=== PATIENT | male | born 1970 | race African-American/Black ===

== ENCOUNTER 2016-05-07 23:48 | Emergency (ER) | payer OTHER ==
[~2016-05-07] VITALS: Ht 182.9 cm; Wt 178.2 kg
[~2016-05-07 23:48] MED LIST: ADVIL,NUPRIN,M200 MG PO; AMOX TR-K CLV1 EAC4 PO; AVINza PO; Aldactone PO; Apresoline PO; BACTRIM,SEPT1 TABLET PO; Benicar PO; CARDIZEM60 MG PO; CARVEDILOL25 MG PO; CEPHALEXIN500 MG PO; CIPRO500 MG PO; CLEOCIN300 MG PO; CLINDAMYCIN HC300 MG PO; CLONIDINE HCL0.2 MG PO; COREG CR40 MG PO; COREG25 M1 PO; Catapres-TTS 2 TD; Cleocin PO; Coreg PO; DAILY VITE1 EAC1 PO; DILTIAZEM 24HR240 MG PO; DILTIAZEM ER60 MG PO; DIOVAN320 MG PO; DOXYCYCLINE HY100 M3 PO; Ecotrin PO; FERROUS SULFAT325 MG PO; FUROSEMIDE20 MG PO; FUROSEMIDE40 MG PO; HYDRALAZINE HCL50 MG PO; HYDROCHLOROTHIA50 MG PO; HYDROCODON-ACE1 EAC7 PO; HYDRODIURIL,O12.5 M2 PO; HYDROMORPHONE HC4 MG PO; HYGROTON25 MG PO; Hydrodiuril,Oretic,E PO; IBUPROFEN200 M1 PO; IBUPROFEN800 MG PO; IMDUR60 MG PO; INDOCIN25 MG PO; INVANZ1 GM IV; Imdur PO; KEFLEX500 MG PO; LEVAQUIN500 MG PO; LEVAQUIN750 MG PO; LEVOFLOXACIN750 MG PO; LOSARTAN POTAS100 MG PO; LYRICA150 MG PO; LYRICA50 MG PO; Levaquin PO; MAXIPIME2 GM IV; MICONAZOLE NITR30 GM TP; MITRAZOL 2% CRE45 GM TP; MOTRIN IB200 MG PO; MOTRIN800 MG PO; NEURONTIN100 MG PO; NICOTINE PATCH1 EAC2 TD; NORCO 5/3251 TABLET PO; NORMODYNE,TRAN300 MG PO; NORVASC10 MG PO; Norvasc PO; OPANA ER20 MG PO; OXYCODONE HCL15 MG PO; OXYCODONE-APAP1 EACH; OXYMORPHONE HCL40 MG PO; PERCOCET 10/1 TABLET PO; PERCOCET 5/31 TABLET PO; POLYETHYLENE GL17 GM PO; PRINIVIL20 MG PO; Percocet 10/325,Endo PO; Proventil,Ventolin H IH; SENNA LAX8.6 MG PO; SENNA8.6 MG PO; SPIRONOLACTONE25 MG PO; TOPROL PO; TOPROL XL50 MG PO; TORADOL10 MG PO; TRILEPTAL150 MG PO; ULTRACET1 TABLET PO; ULTRAM50 MG PO; Vicodin,Norco 5/325 PO; XARELTO15 MG PO; ZOFRAN ODT4 MG PO; Zestril,Prinivil PO; oxyCODONE PO
[2016-05-08 03:47] LABS: HEMATOCRIT 38.9 % (38.0-50.0); MCH 28.8 PG (29.0-34.0); MCHC 33.2 G/DL (30.0-36.0); MCV 86.8 FL (86-99); MEAN PLAT.VOLUME 9.8 uM^3 (9.0-12.4); PLATELET COUNT 216 K/uL (156-360); RBC DIS.WIDTH-CV 14.3 % (11.8-14.6); RBC DIS.WIDTH-SD 44.8 % (39-53); RED BLOOD COUNT 4.48 M/uL (4.00-5.50); WHITE BLOOD COUNT 8.4 K/uL (4.1-10.2)
[2016-05-08 03:55] LABS: CHLORIDE 105 mEq/L (99-109); POTASSIUM 3.6 mEq/L (3.7-5.4); SODIUM 141 mEq/L (136-147)
[2016-05-08 03:58] LABS: GLUCOSE 99 mg/dL (70-99)
[2016-05-08 03:59] LABS: ANION GAP 7 MEQ/L (2-14)
[2016-05-08 04:00] LABS: TOTAL BILIRUBIN 0.2 mg/dL (0.0-1.0)
[2016-05-08] MEDS ORDERED: NORCO 5/3251 TABLET PO (04:00)
[2016-05-08 04:01] LABS: ALKALINE PHOSPHATASE 129 IU/L (3-129); GFR ESTIMATE (CALCULATED) > 59 mL/min/
[2016-05-08 04:02] LABS: UREA NITROGEN (BUN) 14 mg/dL (9-23)
[2016-05-08 04:05] LABS: LIPASE 41 U/L (1.0-51.0)
[2016-05-08 04:18] VITALS: BP 135/99
== END 2016-05-08 04:26 | disposition home or self-care (01) ==
LOC: EME 23:48
PROVIDERS: Emergency Medicine
DX: S40.012A Contusion of left shoulder, initial encounter (principal); S70.02XA Contusion of left hip, initial encounter; M16.9 Osteoarthritis of hip, unspecified; W10.9XXA Fall (on) (from) unspecified stairs and steps, initial encounter; Y93.01 Activity, walking, marching and hiking; Z87.891 Personal history of nicotine dependence; I10 Essential (primary) hypertension; I48.91 Unspecified atrial fibrillation; J45.909 Unspecified asthma, uncomplicated; Z87.442 Personal history of urinary calculi; Z86.718 Personal history of other venous thrombosis and embolism; Z88.1 Allergy status to other antibiotic agents
CPT/HCPCS: 72192; 73030; 73502; 80053; 83690; 85027; 99281; 99284; J1885

== ENCOUNTER 2016-05-20 23:19 | Inpatient (IN) | payer OTHER ==
[~2016-05-20] VITALS: Ht 182.9 cm; Wt 189.3 kg
[2016-05-21 02:07] LABS: BASOPHIL COUNT 0.1 K/uL (0-0.1); EOSINOPHIL (%) 6.2 % (0-5); EOSINOPHIL COUNT 0.6 K/uL (0-0.3); HEMATOCRIT 37.6 % (38.0-50.0); IMMATURE GRANULOCYTE (%) 0.1 % (0.0-0.7); IMMATURE GRANULOCYTE COUNT 0.1 K/uL; LYMPHOCYTE COUNT 3.5 K/uL (1.0-2.8); MCH 28.6 PG (29.0-34.0); MCHC 32.4 G/DL (30.0-36.0); MCV 88.3 FL (86-99); MEAN PLAT.VOLUME 10.6 uM^3 (9.0-12.4); MONOCYTE (%) 9.6 % (3-12); MONOCYTE COUNT 0.9 K/uL (0-0.8); NEUTROPHIL (%) 45.9 % (45-76); NEUTROPHIL COUNT 4.3 K/uL (1.8-6.4); PLATELET COUNT 206 K/uL (156-360); RBC DIS.WIDTH-CV 14.6 % (11.8-14.6); RBC DIS.WIDTH-SD 46.2 % (39-53); RED BLOOD COUNT 4.26 M/uL (4.00-5.50); WHITE BLOOD COUNT 9.3 K/uL (4.1-10.2)
[2016-05-21 02:15] LABS: CHLORIDE 105 mEq/L (99-109); POTASSIUM 3.7 mEq/L (3.7-5.4); SODIUM 143 mEq/L (136-147)
[2016-05-21 02:16] LABS: GLUCOSE 88 mg/dL (70-99)
[2016-05-21 02:18] LABS: ANION GAP 7 MEQ/L (2-14)
[2016-05-21 02:20] LABS: GFR ESTIMATE (CALCULATED) > 59 mL/min/
[2016-05-21 02:21] LABS: UREA NITROGEN (BUN) 14 mg/dL (9-23)
[2016-05-21] MEDS ORDERED: MELOXICAM15 MG PO (08:46)
[2016-05-21] MEDS ORDERED: CLONIDINE HCL0.1 MG PO (08:46)
[2016-05-21 10:40] LABS: INTER. NORMALIZED RATIO 1.1; PROTHROMBIN TIME 10.8 (9.2-11.2); PTT 25.4 (25-32)
[2016-05-21 15:30] VITALS: BP 138/81
[2016-05-21 20:30] VITALS: BP 181/84
[2016-05-21 23:55] VITALS: BP 164/88
[2016-05-22 04:26] VITALS: BP 134/68
[2016-05-22 08:00] VITALS: BP 125/74
[2016-05-22 12:00] VITALS: BP 115/62
[2016-05-22 16:05] VITALS: BP 154/80
[2016-05-22 21:16] VITALS: BP 158/93
[2016-05-22 23:55] VITALS: BP 162/95
[2016-05-23 01:33] LABS: INTER. NORMALIZED RATIO 1.1; PROTHROMBIN TIME 10.7 (9.2-11.2)
[2016-05-23 01:48] LABS: PTT 30.2 (25-32)
[2016-05-23 02:41] LABS: INTER. NORMALIZED RATIO 1.1; PROTHROMBIN TIME 10.7 (9.2-11.2); PTT 31.8 (25-32)
[2016-05-23 04:46] VITALS: BP 146/85
[2016-05-23 08:09] VITALS: BP 174/106
[2016-05-23 09:59] LABS: INTER. NORMALIZED RATIO 1.1; PROTHROMBIN TIME 10.7 (9.2-11.2); PTT 43.1 (25-32)
[2016-05-23 12:21] VITALS: BP 144/72
[2016-05-23 16:46] VITALS: BP 122/69
[2016-05-23 20:07] VITALS: BP 183/96
[2016-05-23 23:53] VITALS: BP 172/96
[2016-05-24 04:17] LABS: PTT 47.1 (25-32)
[2016-05-24 04:32] LABS: HEMATOCRIT 35.6 % (38.0-50.0); MCH 28.4 PG (29.0-34.0); MCHC 32.3 G/DL (30.0-36.0); MCV 87.9 FL (86-99); PLATELET COUNT 200 K/uL (156-360); RBC DIS.WIDTH-CV 14.4 % (11.8-14.6); RBC DIS.WIDTH-SD 45.3 % (39-53); RED BLOOD COUNT 4.05 M/uL (4.00-5.50); WHITE BLOOD COUNT 7.7 K/uL (4.1-10.2)
[2016-05-24 05:07] LABS: INTER. NORMALIZED RATIO 1.1; PROTHROMBIN TIME 11.1 (9.2-11.2)
[2016-05-24 07:00] VITALS: BP 167/69
[2016-05-24 10:35] LABS: TROP-I INTERPRETATION NEGATIVE; TROPONIN-I < 0.01 ng/mL (0.0-0.30)
[2016-05-24 11:01] VITALS: BP 159/85
[2016-05-24 15:59] VITALS: BP 158/96
[2016-05-24 17:12] LABS: TROP-I INTERPRETATION NEGATIVE; TROPONIN-I 0.01 ng/mL (0.0-0.30)
[2016-05-24 19:30] VITALS: BP 131/68
[2016-05-24 23:45] VITALS: BP 107/56
[2016-05-25 01:43] LABS: TROP-I INTERPRETATION NEGATIVE; TROPONIN-I 0.02 ng/mL (0.0-0.30)
[2016-05-25 03:36] VITALS: BP 113/63
[2016-05-25 06:34] LABS: INTER. NORMALIZED RATIO 1.3; PROTHROMBIN TIME 13.2 (9.2-11.2)
[2016-05-25 07:47] VITALS: BP 140/88
[2016-05-25 10:48] VITALS: BP 120/78
[2016-05-25 15:10] VITALS: BP 171/81
[2016-05-25 19:38] VITALS: BP 126/69
[2016-05-25 23:30] VITALS: BP 103/57
[2016-05-26 03:20] VITALS: BP 110/78
[2016-05-26 06:44] LABS: INTER. NORMALIZED RATIO 1.5; PROTHROMBIN TIME 15.9 (9.2-11.2); PTT 49.1 (25-32)
[2016-05-26 07:30] VITALS: BP 168/91
[2016-05-26 11:18] VITALS: BP 133/78
[2016-05-26 15:41] VITALS: BP 160/98
[2016-05-26 19:56] VITALS: BP 134/66
[2016-05-26 23:25] VITALS: BP 137/75
[2016-05-27 03:50] LABS: INTER. NORMALIZED RATIO 1.7; PROTHROMBIN TIME 17.8 (9.2-11.2); PTT 70.3 (25-32)
[2016-05-27 07:28] VITALS: BP 149/86
[2016-05-27 11:17] VITALS: BP 135/68
[2016-05-27 15:45] VITALS: BP 156/93
[2016-05-27 19:56] VITALS: BP 134/81
[2016-05-27 23:46] VITALS: BP 117/59
[2016-05-28 04:25] VITALS: BP 154/89
[2016-05-28 08:25] LABS: INTER. NORMALIZED RATIO 1.9; PROTHROMBIN TIME 19.3 (9.2-11.2); PTT 67.5 (25-32)
[2016-05-28] MEDS ORDERED: HYDROCHLOROTHIA25 MG PO (09:05)
[2016-05-28] MEDS ORDERED: COUMADIN1 MG PO (09:06)
[2016-05-28 09:18] VITALS: BP 131/75
[2016-05-28] MEDS ORDERED: COUMADIN5 MG PO (09:42)
== END 2016-05-28 13:43 | disposition home or self-care (01) | DRG 253 ==
LOC: EME 23:19 → 4SOUTH 05-21 08:57 → EDOF 05-21 08:57 → 4SOUTH 05-21 08:57
PROVIDERS: Emergency Medicine; Internal Medicine
PROC: 06H03DZ Insertion of Intraluminal Device into Inferior Vena Cava, Percutaneous Approach (ICD-10-PCS; principal; 2016-05-24)
DX: I82.4Z9 Acute embolism and thrombosis of unspecified deep veins of unspecified distal lower extremity (principal); L03.115 Cellulitis of right lower limb; Z68.43 Body mass index [BMI] 50.0-59.9, adult; E27.40 Unspecified adrenocortical insufficiency; E66.01 Morbid (severe) obesity due to excess calories; I87.2 Venous insufficiency (chronic) (peripheral); I48.0 Paroxysmal atrial fibrillation; G47.33 Obstructive sleep apnea (adult) (pediatric); G89.4 Chronic pain syndrome; I82.511 Chronic embolism and thrombosis of right femoral vein; D64.9 Anemia, unspecified; I10 Essential (primary) hypertension; K21.9 Gastro-esophageal reflux disease without esophagitis; F17.210 Nicotine dependence, cigarettes, uncomplicated; I89.0 Lymphedema, not elsewhere classified; Z90.49 Acquired absence of other specified parts of digestive tract
CPT/HCPCS: 70100; 80048; 81003; 83605; 84484; 85025; 85027; 85610; 85730; 87040; 93005; 93971; 94660; 99281; 99284; C1769; C1894; J1170; J1644; J2250; J2270; J3010

== ENCOUNTER 2016-08-18 16:56 | Emergency (ER) | payer OTHER ==
[~2016-08-18] VITALS: Ht 185.4 cm; Wt 176.0 kg
[~2016-08-18 16:56] MED LIST changes: +CLONIDINE HCL0.1 MG PO; +COUMADIN1 MG PO; +COUMADIN5 MG PO; +HYDROCHLOROTHIA25 MG PO; +MELOXICAM15 MG PO
[2016-08-18 17:56] LABS: POINT-OF-CARE METER ID UU13113800
[2016-08-18 18:04] LABS: HEMATOCRIT 40.1 % (38.0-50.0); MCH 28.5 PG (29.0-34.0); MCHC 32.2 G/DL (30.0-36.0); MCV 88.7 FL (86-99); MEAN PLAT.VOLUME 10.5 uM^3 (9.0-12.4); PLATELET COUNT 183 K/uL (156-360); RBC DIS.WIDTH-CV 14.8 % (11.8-14.6); RBC DIS.WIDTH-SD 48.7 % (39-53); RED BLOOD COUNT 4.52 M/uL (4.00-5.50); WHITE BLOOD COUNT 7.8 K/uL (4.1-10.2)
[2016-08-18 18:15] LABS: CHLORIDE 106 mEq/L (99-109); POTASSIUM 3.1 mEq/L (3.7-5.4); SODIUM 142 mEq/L (136-147)
[2016-08-18 18:16] LABS: INTER. NORMALIZED RATIO 1.1; PROTHROMBIN TIME 11.3 (9.2-11.2); PTT 26.7 (25-32)
[2016-08-18 18:17] LABS: GLUCOSE 102 mg/dL (70-99)
[2016-08-18 18:18] LABS: ANION GAP 8 MEQ/L (2-14)
[2016-08-18 18:21] LABS: GFR ESTIMATE (CALCULATED) > 59 mL/min/
[2016-08-18 18:22] LABS: UREA NITROGEN (BUN) 11 mg/dL (9-23)
[2016-08-18 18:26] LABS: TROP-I INTERPRETATION NEGATIVE; TROPONIN-I < 0.01 ng/mL (0.0-0.30)
[2016-08-18 18:53] LABS: D-DIMER ELISA 2.05 mg/L FEU (< 0.57)
[2016-08-18 19:28] LABS: ADD MIUA? NO; BILIRUBIN NEGATIVE; BLOOD NEGATIVE; COLOR YELLOW ((YELLOW)); GLUCOSE (STRIP) NEGATIVE; KETONES NEGATIVE; LEUKOCYTES NEGATIVE; NITRITE NEGATIVE; PROTEIN (STRIP) NEGATIVE; SPECIFIC GRAVITY 1.017 (1.000-1.030)
[2016-08-18 22:16] VITALS: BP 166/90
== END 2016-08-18 22:19 | disposition home or self-care (01) ==
LOC: EME 16:56
PROVIDERS: Physician Assistant
DX: E87.6 Hypokalemia (principal); R79.1 Abnormal coagulation profile; Z79.01 Long term (current) use of anticoagulants; M25.552 Pain in left hip; Z91.81 History of falling; R07.9 Chest pain, unspecified; R35.0 Frequency of micturition; Z86.718 Personal history of other venous thrombosis and embolism; I10 Essential (primary) hypertension; Z79.891 Long term (current) use of opiate analgesic; F17.200 Nicotine dependence, unspecified, uncomplicated
CPT/HCPCS: 71020; 71275; 73502; 80048; 81003; 82948; 84484; 85027; 85379; 85610; 85730; 93005; 99281; 99285; J2270

== ENCOUNTER 2016-10-29 04:06 | Observation (INO) | payer OTHER ==
[~2016-10-29] VITALS: Ht 182.9 cm; Wt 180.4 kg
[~2016-10-29 04:06] MED LIST changes: -CARDIZEM60 MG PO; -CLONIDINE HCL0.1 MG PO; -DAILY VITE1 EAC1 PO; -OPANA ER20 MG PO
[2016-10-29 04:34] LABS: HEMATOCRIT 41.4 % (38.0-50.0); MCH 28.6 PG (29.0-34.0); MCHC 33.3 G/DL (30.0-36.0); MCV 85.9 FL (86-99); MEAN PLAT.VOLUME 9.9 uM^3 (9.0-12.4); PLATELET COUNT 207 K/uL (156-360); RBC DIS.WIDTH-CV 14.6 % (11.8-14.6); RBC DIS.WIDTH-SD 45.9 % (39-53); RED BLOOD COUNT 4.82 M/uL (4.00-5.50); WHITE BLOOD COUNT 8.9 K/uL (4.1-10.2)
[2016-10-29 04:44] LABS: CHLORIDE 105 mEq/L (99-109); POTASSIUM 3.4 mEq/L (3.7-5.4); SODIUM 139 mEq/L (136-147)
[2016-10-29 04:46] LABS: GLUCOSE 100 mg/dL (70-99)
[2016-10-29 04:47] LABS: ANION GAP 11 MEQ/L (2-14)
[2016-10-29 04:50] LABS: GFR ESTIMATE (CALCULATED) > 59 mL/min/
[2016-10-29 04:51] LABS: UREA NITROGEN (BUN) 14 mg/dL (9-23)
[2016-10-29 04:56] LABS: TROP-I INTERPRETATION NEGATIVE; TROPONIN-I 0.01 ng/mL (0.0-0.30)
[2016-10-29 07:20] LABS: PROTHROMBIN TIME 11.1 SEC (10.2-12.9)
[2016-10-29 07:23] VITALS: BP 99/65
[2016-10-29 11:29] VITALS: BP 110/72
[2016-10-29 13:13] LABS: TROPONIN-I < 0.01 ng/mL (0.0-0.30)
[2016-10-29 13:19] LABS: TROP-I INTERPRETATION NEGATIVE
[2016-10-29] MEDS ORDERED: HYDRALAZINE HCL50 MG PO (14:45)
[2016-10-29] MEDS ORDERED: DAILY VITE1 EAC1 PO (14:45)
[2016-10-29] MEDS ORDERED: OXYCODONE HCL15 MG PO (14:46)
[2016-10-29] MEDS ORDERED: CARDIZEM60 MG PO (14:46)
[2016-10-29] MEDS ORDERED: OPANA ER15 MG PO (14:46)
[2016-10-29] MEDS ORDERED: COREG25 M1 PO (14:48)
[2016-10-29] MEDS ORDERED: CLONIDINE HCL0.1 MG PO (14:49)
[2016-10-29] MEDS ORDERED: HYDROCHLOROTHIA50 MG PO (14:49)
[2016-10-29] MEDS ORDERED: JANTOVEN5 MG PO (14:50)
[2016-10-29 15:41] VITALS: BP 117/81
[2016-10-29 19:09] VITALS: BP 134/63
[2016-10-29 20:46] LABS: TROP-I INTERPRETATION NEGATIVE; TROPONIN-I 0.02 ng/mL (0.0-0.30)
[2016-10-30] VITALS: BP 131/77
[2016-10-30 04:14] LABS: BASOPHIL COUNT 0.1 K/uL (0-0.1); EOSINOPHIL (%) 5.9 % (0-5); EOSINOPHIL COUNT 0.4 K/uL (0-0.3); HEMATOCRIT 37.7 % (38.0-50.0); HEMATOCRIT 38.3 % (38.0-50.0); IMMATURE GRANULOCYTE (%) 0.1 % (0.0-0.7); INSTRUMENT ABS NEUTROPHIL CT 2.2 K/uL; LYMPHOCYTE COUNT 3.4 K/uL (1.0-2.8); MCH 28.5 PG (29.0-34.0); MCH 28.6 PG (29.0-34.0); MCHC 32.4 G/DL (30.0-36.0); MCHC 32.6 G/DL (30.0-36.0); MCV 87.7 FL (86-99); MEAN PLAT.VOLUME 9.6 uM^3 (9.0-12.4); MEAN PLAT.VOLUME 9.8 uM^3 (9.0-12.4); MONOCYTE COUNT 0.7 K/uL (0-0.8); NEUTROPHIL (%) 33.1 % (45-76); NEUTROPHIL COUNT 2.2 K/uL (1.8-6.4); PLATELET COUNT 183 K/uL (156-360); PLATELET COUNT 189 K/uL (156-360); RBC DIS.WIDTH-CV 14.4 % (11.8-14.6); RBC DIS.WIDTH-CV 14.7 % (11.8-14.6); RBC DIS.WIDTH-SD 46.5 % (39-53); RBC DIS.WIDTH-SD 47.6 % (39-53); RED BLOOD COUNT 4.35 M/uL (4.00-5.50); WHITE BLOOD COUNT 6.6 K/uL (4.1-10.2); WHITE BLOOD COUNT 6.8 K/uL (4.1-10.2)
[2016-10-30 04:16] VITALS: BP 138/84
[2016-10-30 04:19] LABS: INTER. NORMALIZED RATIO 1.1; PROTHROMBIN TIME 11.9 SEC (10.2-12.9)
[2016-10-30 04:29] LABS: CHLORIDE 106 mEq/L (99-109); POTASSIUM 3.7 mEq/L (3.7-5.4); SODIUM 142 mEq/L (136-147)
[2016-10-30 04:31] LABS: GLUCOSE 90 mg/dL (70-99)
[2016-10-30 04:32] LABS: ANION GAP 6 MEQ/L (2-14)
[2016-10-30 04:33] LABS: TOTAL BILIRUBIN 0.5 mg/dL (0.0-1.0)
[2016-10-30 04:34] LABS: ALKALINE PHOSPHATASE 93 IU/L (3-129)
[2016-10-30 04:35] LABS: GFR ESTIMATE (CALCULATED) > 59 mL/min/
[2016-10-30 04:36] LABS: UREA NITROGEN (BUN) 16 mg/dL (9-23)
[2016-10-30 04:37] LABS: TROP-I INTERPRETATION NEGATIVE; TROPONIN-I < 0.01 ng/mL (0.0-0.30)
[2016-10-30 07:44] VITALS: BP 140/73
[2016-10-30 11:44] VITALS: BP 135/84
[2016-10-30] MEDS ORDERED: HYDRALAZINE HCL50 MG PO (13:09)
[2016-10-30] MEDS ORDERED: CARDIZEM60 MG PO (13:09)
[2016-10-30] MEDS ORDERED: JANTOVEN5 MG PO (13:09)
[2016-10-30] MEDS ORDERED: COREG25 M1 PO (13:09)
[2016-10-30] MEDS ORDERED: HYDROCHLOROTHIA50 MG PO (13:09)
== END 2016-10-30 14:44 | disposition home or self-care (01) ==
LOC: EME 04:06 → EDOF 05:25 → 5WEST 05:25 → ENRESERV 05:35 → 5WEST 07:03
PROVIDERS: Internal Medicine
DX: R07.9 Chest pain, unspecified (principal); I48.0 Paroxysmal atrial fibrillation; E66.9 Obesity, unspecified; I10 Essential (primary) hypertension; E78.5 Hyperlipidemia, unspecified; I73.9 Peripheral vascular disease, unspecified; G89.4 Chronic pain syndrome; F17.200 Nicotine dependence, unspecified, uncomplicated
CPT/HCPCS: 71020; 80048; 80053; 84484; 85025; 85027; 85610; 93005; 99281; 99285; G0378; J1644

== ENCOUNTER 2016-12-04 16:16 | Emergency (ER) | payer OTHER ==
[~2016-12-04] VITALS: Ht 185.4 cm; Wt 175.5 kg
[~2016-12-04 16:16] MED LIST changes: +CARDIZEM60 MG PO; +CLONIDINE HCL0.1 MG PO; +DAILY VITE1 EAC1 PO; +JANTOVEN5 MG PO; +OPANA ER15 MG PO
[2016-12-04 16:56] LABS: ADD MIUA? YES; BILIRUBIN NEGATIVE; BLOOD NEGATIVE; COLOR YELLOW ((YELLOW)); GLUCOSE (STRIP) NEGATIVE; KETONES NEGATIVE; LEUKOCYTES NEGATIVE; NITRITE NEGATIVE; PROTEIN (STRIP) NEGATIVE; SPECIFIC GRAVITY 1.016 (1.000-1.030)
[2016-12-04 17:01] LABS: BACTERIA RARE /HPF; EPITHELIAL CELLS RARE /HPF; HYALINE CASTS 20-30 /LPF; MUCUS TRACE /LPF; RED BLOOD CELLS 0-5 /HPF (0-5); UCUL ADDED? NO; WHITE BLOOD CELLS 0-5 /HPF (0-5)
[2016-12-04 17:09] LABS: BASOPHIL COUNT 0.1 K/uL (0-0.1); EOSINOPHIL (%) 4.7 % (0-5); EOSINOPHIL COUNT 0.4 K/uL (0-0.3); HEMATOCRIT 41.7 % (38.0-50.0); IMMATURE GRANULOCYTE (%) 0.4 % (0.0-0.7); LYMPHOCYTE COUNT 1.7 K/uL (1.0-2.8); MCH 28.9 PG (29.0-34.0); MCHC 33.6 G/DL (30.0-36.0); MEAN PLAT.VOLUME 10.2 uM^3 (9.0-12.4); MONOCYTE (%) 10.4 % (3-12); MONOCYTE COUNT 0.8 K/uL (0-0.8); NEUTROPHIL (%) 62.6 % (45-76); PLATELET COUNT 201 K/uL (156-360); RBC DIS.WIDTH-CV 14.6 % (11.8-14.6); RBC DIS.WIDTH-SD 46.2 % (39-53); RED BLOOD COUNT 4.85 M/uL (4.00-5.50)
[2016-12-04 17:11] LABS: CARBON DIOXIDE (BICARBONATE) 35.6 MEQ/L (20-31)
[2016-12-04 17:17] LABS: CHLORIDE 101 mEq/L (99-109); POTASSIUM 3.2 mEq/L (3.7-5.4); PTT 27.3 SEC (25-37); SODIUM 140 mEq/L (136-147)
[2016-12-04 17:18] LABS: PROTHROMBIN TIME 11.3 SEC (10.2-12.9)
[2016-12-04 17:19] LABS: GLUCOSE 114 mg/dL (70-99)
[2016-12-04 17:21] LABS: ANION GAP 9 MEQ/L (2-14); TOTAL BILIRUBIN 0.4 mg/dL (0.0-1.0)
[2016-12-04 17:23] LABS: ALKALINE PHOSPHATASE 131 IU/L (3-129); GFR ESTIMATE (CALCULATED) > 59 mL/min/
[2016-12-04 17:24] LABS: UREA NITROGEN (BUN) 15 mg/dL (9-23)
[2016-12-04 17:26] LABS: LIPASE 48 U/L (1.0-51.0)
[2016-12-04 20:53] VITALS: BP 155/97
== END 2016-12-04 21:00 | disposition home or self-care (01) ==
LOC: EME 16:16
PROVIDERS: Emergency Medicine
DX: R10.11 Right upper quadrant pain (principal); R42 Dizziness and giddiness; R63.4 Abnormal weight loss; G89.29 Other chronic pain; G47.30 Sleep apnea, unspecified; I10 Essential (primary) hypertension; F17.200 Nicotine dependence, unspecified, uncomplicated; Z87.442 Personal history of urinary calculi
CPT/HCPCS: 70450; 71260; 74177; 80053; 81003; 82010; 82803; 83605; 83690; 85025; 85610; 85730; 86341 90; 99281; 99285; J3010; J7030

== ENCOUNTER 2016-12-23 00:33 | Emergency (ER) | payer OTHER ==
[~2016-12-23] VITALS: Ht 182.9 cm; Wt 175.0 kg
[2016-12-23 01:21] LABS: HEMATOCRIT 40.5 % (38.0-50.0); MCH 28.8 PG (29.0-34.0); MCHC 33.3 G/DL (30.0-36.0); MCV 86.5 FL (86-99); MEAN PLAT.VOLUME 9.9 uM^3 (9.0-12.4); PLATELET COUNT 231 K/uL (156-360); RBC DIS.WIDTH-SD 47.6 % (39-53); RED BLOOD COUNT 4.68 M/uL (4.00-5.50); WHITE BLOOD COUNT 7.8 K/uL (4.1-10.2)
[2016-12-23 01:31] LABS: CHLORIDE 108 mEq/L (99-109); POTASSIUM 3.2 mEq/L (3.7-5.4); SODIUM 142 mEq/L (136-147)
[2016-12-23 01:33] LABS: GLUCOSE 110 mg/dL (70-99)
[2016-12-23 01:34] LABS: ANION GAP 9 MEQ/L (2-14)
[2016-12-23 01:35] LABS: TOTAL BILIRUBIN 0.3 mg/dL (0.0-1.0)
[2016-12-23 01:37] LABS: ALKALINE PHOSPHATASE 153 IU/L (3-129); GFR ESTIMATE (CALCULATED) > 59 mL/min/
[2016-12-23 01:38] LABS: UREA NITROGEN (BUN) 15 mg/dL (9-23)
[2016-12-23 01:55] LABS: ADD MIUA? YES; BILIRUBIN NEGATIVE; BLOOD LARGE; COLOR YELLOW ((YELLOW)); GLUCOSE (STRIP) NEGATIVE; KETONES NEGATIVE; LEUKOCYTES LARGE; NITRITE NEGATIVE; PROTEIN (STRIP) 30; SPECIFIC GRAVITY 1.018 (1.000-1.030); UROBILINOGEN 0.2 MG/DL (0.2-1.0)
[2016-12-23 02:13] LABS: BACTERIA NONE SEEN /HPF; EPITHELIAL CELLS RARE /HPF; MUCUS NONE SEEN /LPF; RED BLOOD CELLS TNTC /HPF (0-5); UCUL ADDED? YES; WHITE BLOOD CELLS TNTC /HPF (0-5)
[2016-12-23] MEDS ORDERED: CIPRO500 MG PO (02:19)
[2016-12-23 02:48] VITALS: BP 168/99
== END 2016-12-23 02:49 | disposition home or self-care (01) ==
LOC: EME 00:33
PROVIDERS: Physician Assistant
DX: N39.0 Urinary tract infection, site not specified (principal); Z87.442 Personal history of urinary calculi; Z90.49 Acquired absence of other specified parts of digestive tract; F17.200 Nicotine dependence, unspecified, uncomplicated
CPT/HCPCS: 80053; 81003; 85027; 87077; 87086; 87186; 99281; 99284

== ENCOUNTER 2017-01-29 14:22 | Emergency (ER) | payer OTHER ==
[~2017-01-29] VITALS: Ht 182.9 cm; Wt 168.2 kg
[2017-01-29 15:47] LABS: BASOPHIL COUNT 0.1 K/uL (0-0.1); EOSINOPHIL (%) 5.1 % (0-5); EOSINOPHIL COUNT 0.4 K/uL (0-0.3); HEMATOCRIT 42.2 % (38.0-50.0); IMMATURE GRANULOCYTE (%) 0.3 % (0.0-0.7); INSTRUMENT ABS NEUTROPHIL CT 3.5 K/uL; LYMPHOCYTE COUNT 2.6 K/uL (1.0-2.8); MCH 29.4 PG (29.0-34.0); MCHC 32.9 G/DL (30.0-36.0); MCV 89.4 FL (86-99); MEAN PLAT.VOLUME 10.5 uM^3 (9.0-12.4); MONOCYTE COUNT 0.7 K/uL (0-0.8); NEUTROPHIL (%) 49.1 % (45-76); NEUTROPHIL COUNT 3.5 K/uL (1.8-6.4); PLATELET COUNT 213 K/uL (156-360); RBC DIS.WIDTH-CV 14.1 % (11.8-14.6); RBC DIS.WIDTH-SD 45.9 % (39-53); RED BLOOD COUNT 4.72 M/uL (4.00-5.50); WHITE BLOOD COUNT 7.2 K/uL (4.1-10.2)
[2017-01-29 15:52] LABS: PROTHROMBIN TIME 11.4 SEC (10.2-12.9)
[2017-01-29 15:54] LABS: CHLORIDE 104 mEq/L (99-109); POTASSIUM 3.3 mEq/L (3.7-5.4); SODIUM 141 mEq/L (136-147)
[2017-01-29 15:55] LABS: PTT 29.3 SEC (25-37)
[2017-01-29 15:56] LABS: GLUCOSE 89 mg/dL (70-99)
[2017-01-29 15:57] LABS: ANION GAP 10 MEQ/L (2-14)
[2017-01-29 16:00] LABS: GFR ESTIMATE (CALCULATED) > 59 mL/min/
[2017-01-29 16:01] LABS: UREA NITROGEN (BUN) 15 mg/dL (9-23)
[2017-01-29] MEDS ORDERED: ULTRAM50 MG PO (16:47)
[2017-01-29 17:37] VITALS: BP 181/100
== END 2017-01-29 17:38 | disposition home or self-care (01) ==
LOC: EME 14:22
PROVIDERS: Physician Assistant
DX: M79.662 Pain in left lower leg (principal); M79.89 Other specified soft tissue disorders; J02.9 Acute pharyngitis, unspecified; R42 Dizziness and giddiness; R53.1 Weakness; Z86.718 Personal history of other venous thrombosis and embolism; I10 Essential (primary) hypertension; Z96.642 Presence of left artificial hip joint; F17.200 Nicotine dependence, unspecified, uncomplicated
CPT/HCPCS: 71020; 80048; 83605; 85025; 85610; 85730; 87040; 87651 90; 93971; 99281; 99284; J7030

== ENCOUNTER 2017-04-16 23:51 | Emergency (ER) | payer OTHER ==
[~2017-04-16] VITALS: Ht 182.9 cm; Wt 207.0 kg
[2017-04-17 03:57] LABS: HEMATOCRIT 38.5 % (38.0-50.0); HEMOGLOBIN 12.6 G/DL (12.5-16.6); MCH 29.2 PG (29.0-34.0); MCHC 32.7 G/DL (30.0-36.0); MCV 89.3 FL (86-99); PLATELET COUNT 168 K/uL (156-360); RBC DIS.WIDTH-CV 13.6 % (11.8-14.6); RBC DIS.WIDTH-SD 44.8 % (39-53); RED BLOOD COUNT 4.31 M/uL (4.00-5.50); WHITE BLOOD COUNT 9.1 K/uL (4.1-10.2)
[2017-04-17 04:12] LABS: CHLORIDE 102 mEq/L (99-109); POTASSIUM 3.7 mEq/L (3.7-5.4); SODIUM 140 mEq/L (136-147)
[2017-04-17 04:13] LABS: GLUCOSE 101 mg/dL (70-99)
[2017-04-17 04:17] LABS: GFR ESTIMATE (CALCULATED) > 59 mL/min/ (58.99-99999)
[2017-04-17 04:18] LABS: UREA NITROGEN (BUN) 17 mg/dL (9-23)
[2017-04-17 04:50] LABS: ERTH.SED.RATE 21 MM/HR (0-15)
[2017-04-17 05:36] VITALS: BP 187/101
== END 2017-04-17 05:37 | disposition home or self-care (01) ==
LOC: EXP 23:51 → EME 23:51 → EXP 04-17 05:37
PROVIDERS: Emergency Medicine Emergency Medical Services
DX: I87.2 Venous insufficiency (chronic) (peripheral) (principal); I10 Essential (primary) hypertension; J45.909 Unspecified asthma, uncomplicated; F17.200 Nicotine dependence, unspecified, uncomplicated; Z79.891 Long term (current) use of opiate analgesic; Z86.718 Personal history of other venous thrombosis and embolism; Z85.9 Personal history of malignant neoplasm, unspecified; Z88.1 Allergy status to other antibiotic agents
CPT/HCPCS: 73590; 80048; 85027; 85651; 93971; 99281; 99284; J2270

== ENCOUNTER 2017-06-27 23:24 | Emergency (ER) | payer OTHER ==
[~2017-06-27] VITALS: Ht 182.9 cm; Wt 207.0 kg
[2017-06-28 02:42] LABS: HEMOGLOBIN 14.3 G/DL (12.5-16.6); MCH 29.3 PG (29.0-34.0); MCHC 33.3 G/DL (30.0-36.0); MCV 88.1 FL (86-99); RBC DIS.WIDTH-CV 13.8 % (11.8-14.6); RBC DIS.WIDTH-SD 44.3 % (39-53); RED BLOOD COUNT 4.88 M/uL (4.00-5.50); WHITE BLOOD COUNT 8.7 K/uL (4.1-10.2)
[2017-06-28 02:54] LABS: PTT 28.5 SEC (25-37)
[2017-06-28 03:05] LABS: CHLORIDE 106 mEq/L (99-109); POTASSIUM 4.1 mEq/L (3.7-5.4); SODIUM 141 mEq/L (136-147)
[2017-06-28 03:06] LABS: GLUCOSE 100 mg/dL (70-99)
[2017-06-28 03:10] LABS: GFR ESTIMATE (CALCULATED) > 59 mL/min/ (58.99-99999)
[2017-06-28 03:11] LABS: UREA NITROGEN (BUN) 13 mg/dL (9-23)
[2017-06-28 03:26] LABS: PLATELET CLUMPS PRESENT - PLATELET COUNT APPEARS ADQ.; PLATELET COUNT UNABLE TO REPORT K/uL (156-360)
[2017-06-28 03:57] LABS: APPEARANCE SL.HAZY ((CLEAR)); BILIRUBIN SMALL; BLOOD NEGATIVE; COLOR AMBER ((YELLOW)); GLUCOSE (STRIP) NEGATIVE; KETONES 5; LEUKOCYTES NEGATIVE; NITRITE NEGATIVE; PROTEIN (STRIP) 100; SPECIFIC GRAVITY 1.036 (1.000-1.030)
[2017-06-28 04:09] LABS: BACTERIA RARE /HPF; EPITHELIAL CELLS 1+ /HPF; HYALINE CASTS 15-20 /LPF; MUCUS 4+ /LPF; RED BLOOD CELLS 20-30 /HPF (0-5); UCUL ADDED? YES
[2017-06-28] MEDS ORDERED: MEDROL DOSEPAK4 MG PO (04:59)
[2017-06-28] MEDS ORDERED: BACTRIM,SEPT1 TABLET PO (04:59)
[2017-06-28 07:40] VITALS: BP 149/90
== END 2017-06-28 07:48 | disposition home or self-care (01) ==
LOC: EME 23:24
PROVIDERS: Emergency Medicine
DX: M54.5 Low back pain (principal); M25.552 Pain in left hip; G89.29 Other chronic pain; N30.91 Cystitis, unspecified with hematuria; M54.2 Cervicalgia; E88.2 Lipomatosis, not elsewhere classified; M48.061 Spinal stenosis, lumbar region without neurogenic claudication; M51.36 Other intervertebral disc degeneration, lumbar region; M16.12 Unilateral primary osteoarthritis, left hip; Z86.718 Personal history of other venous thrombosis and embolism; Z88.1 Allergy status to other antibiotic agents; W18.30XA Fall on same level, unspecified, initial encounter; F17.200 Nicotine dependence, unspecified, uncomplicated
CPT/HCPCS: 72100; 72148; 73501; 80048; 81003; 85027; 85610; 85730; 87086; 99281; 99284; J1885

== ENCOUNTER 2017-08-19 00:07 | Emergency (ER) | payer OTHER ==
[~2017-08-19] VITALS: Ht 182.9 cm; Wt 188.6 kg
[~2017-08-19 00:07] MED LIST changes: +MEDROL DOSEPAK4 MG PO
[2017-08-19 03:13] LABS: APPEARANCE SL.HAZY ((CLEAR)); BILIRUBIN NEGATIVE; BLOOD NEGATIVE; COLOR YELLOW ((YELLOW)); GLUCOSE (STRIP) NEGATIVE; KETONES NEGATIVE; LEUKOCYTES TRACE; NITRITE NEGATIVE; PROTEIN (STRIP) 30; SPECIFIC GRAVITY 1.029 (1.000-1.030)
[2017-08-19 03:16] LABS: BACTERIA RARE /HPF; EPITHELIAL CELLS 1+ /HPF; MUCUS TRACE /LPF; RED BLOOD CELLS 0-5 /HPF (0-5); UCUL ADDED? YES
[2017-08-19] MEDS ORDERED: CIPRO500 MG PO (03:31)
[2017-08-19] MEDS ORDERED: LIDODERM 5% P1 PATCH TD (03:31)
[2017-08-19 04:10] VITALS: BP 160/99
== END 2017-08-19 04:30 | disposition home or self-care (01) ==
LOC: EME 00:07
PROVIDERS: Emergency Medicine
DX: M54.42 Lumbago with sciatica, left side (principal); G89.29 Other chronic pain; N30.00 Acute cystitis without hematuria; M48.07 Spinal stenosis, lumbosacral region; M25.78 Osteophyte, vertebrae; M24.28 Disorder of ligament, vertebrae; E88.2 Lipomatosis, not elsewhere classified; I10 Essential (primary) hypertension; J45.909 Unspecified asthma, uncomplicated; F17.200 Nicotine dependence, unspecified, uncomplicated; Z87.442 Personal history of urinary calculi; Z85.9 Personal history of malignant neoplasm, unspecified; Z90.49 Acquired absence of other specified parts of digestive tract; Z87.39 Personal history of other diseases of the musculoskeletal system and connective tissue; Z86.79 Personal history of other diseases of the circulatory system; Z87.19 Personal history of other diseases of the digestive system; Z88.1 Allergy status to other antibiotic agents
CPT/HCPCS: 72131; 81003; 87086; 99281; 99284